=== PATIENT | female | born 1955 | race Caucasian/White ===

== ENCOUNTER 2016-10-21 06:07 | Day surgery (SDC) | payer BC ==
[~2016-10-21] VITALS: Ht 147.3 cm; Wt 59.1 kg
[~2016-10-21 06:07] MED LIST: ASPIRIN325 MG PO; BUSPAR10 MG PO; CARAFATE1 G PO; CRESTOR5 MG PO; CYCLOBENZAPRINE5 MG PO; LEVOTHYROXINE75 MCG PO; LOPRESSOR25 MG PO; NITROQUICK0.4 MG SL; OMEPRAZOLE20 M1 PO; PEPCID AC20 MG PO; ULTRAM50 MG PO; VASOTEC10 MG PO; VISTARIL25 MG PO; WELLBUTRIN SR150 MG PO
[2016-10-21 07:18] LABS: BASOPHILS 0.5 % (0.0-2.0); EOSINOPHILS 3.7 % (0-7); HEMATOCRIT 37.8 % (36.0-48.0); HEMOGLOBIN 11.4 g/dL (12-16); IMMATURE GRANULOCYTES 0.3 % (0-5); LYMPHOCYTES 41.6 % (15-50); MCH 25.2 pg (26.0-34.0); MCHC 30.2 g/dL (31.0-37.0); MCV 83.4 fL (80.0-100.0); MEAN PLATELET VOLUME 9.3 fL (7.4-10.4); MONOCYTES 5.8 % (2-11); NEUTROPHILS 48.1 % (40-80); PLATELET COUNT 327 10x3/uL (130-400); RBC 4.53 10x6/uL (4.00-5.40); RDW 14.8 % (11.5-14.5); WBC 7.6 10x3/uL (4.8-10.8)
[2016-10-21 07:28] LABS: CALCIUM 8.8 mg/dL (8.5-10.1); CARBON DIOXIDE 26.7 mmol/L (21.0-32.0); POTASSIUM - SERUM 4.7 mmol/L (3.5-5.1)
[2016-10-21 08:21] VITALS: BP 140/82; BMI 27.2
--- NOTE | 2016-10-21 11:00 | NUR ---
RECIEVED TO ROOM 2231 VIA BED FROM RECOVERY ROOM S/P LAP OMAR. LAP SITES X 6 NOTED TO ABDOMEN. AWAKE AND ALERT TO VERBAL STIMULI VITAL SIGNS WITH IN NORMAL RANGES. FAMILY AT BEDSIDE. WILL MONITOR,
[2016-10-21 15:44] VITALS: BP 125/81; Ht 147.3 cm; Wt 59.1 kg
--- NOTE | 2016-10-21 16:08 | NUR ---
PT THRESHING OPERATOR SET UP AT THIS TIME FOR PAIN CONTROL.
[2016-10-21 16:23] VITALS: BP 144/64
[2016-10-21 20:00] VITALS: BP 121/76
--- NOTE | 2016-10-21 20:00 | NUR ---
PATIENT IN BED WATCHING TV. HOB 30 DEGREES. AAOX4. RR EVEN AND UNLABORED. 0 S/S OF DISTRESS. PATIENT DENIES PAIN WHEN SHE IS SITTING STILL BUT STATES THAT IT IS AN 8/10 WHEN SHE MOVES. IV TO LEFT FA PATENT WITH NO REDNESS OR SWELLING. BANDAIDS X5 TO ABD. SCD'S ON. AT BEDSIDE. SRX2. BED LOW. CALL LIGHT WITHIN REACH.
--- NOTE | 2016-10-21 23:40 | NUR ---
ASSISTED PATIENT TO BATHROOM AND BACK TO BED. MEDS GIVEN PER ORDER. VASOTEC HELD BECAUSE BP TOO LOW.
[2016-10-22] VITALS: BP 143/77
[2016-10-22 04:00] VITALS: BP 138/75
--- NOTE | 2016-10-22 04:14 | NUR ---
PATIENT SLEEPING WITH NO DISTRESS NOTED. AT BEDSIDE.
[2016-10-22 05:06] LABS: BASOPHILS 0.2 % (0.0-2.0); EOSINOPHILS 0.1 % (0-7); HEMATOCRIT 36.6 % (36.0-48.0); HEMOGLOBIN 11.3 g/dL (12-16); IMMATURE GRANULOCYTES 0.2 % (0-5); LYMPHOCYTES 24.8 % (15-50); MCH 25.4 pg (26.0-34.0); MCHC 30.9 g/dL (31.0-37.0); MCV 82.2 fL (80.0-100.0); MEAN PLATELET VOLUME 9.3 fL (7.4-10.4); MONOCYTES 7.2 % (2-11); NEUTROPHILS 67.5 % (40-80); PLATELET COUNT 345 10x3/uL (130-400); RBC 4.45 10x6/uL (4.00-5.40); RDW 14.6 % (11.5-14.5)
[2016-10-22 05:14] LABS: WBC 16.6 10x3/uL (4.8-10.8)
[2016-10-22 05:33] LABS: ANION GAP 14.8 mmol/L (8-16); CALCIUM 8.9 mg/dL (8.5-10.1); CARBON DIOXIDE 23.2 mmol/L (21.0-32.0); CREATININE - SERUM 0.9 mg/dL (0.6-1.3)
--- NOTE | 2016-10-22 07:45 | NUR ---
UP AND GETTING READY TO BATH, AT BEDSIDE, DENIES NEEDS, CALL LIGHT IN REACH, BED LOWEST POSITION, SIDE RAILS UP X2
--- NOTE | 2016-10-22 07:45 | NUR ---
SITTING IN BED, AT BEDSIDE, DENIES NEEDS, CALL LIGHT IN REACH, BED LOWEST POSITION, SIDE RAILS UP X2
--- NOTE | 2016-10-22 08:00 | NUR ---
PATIENT SITTING UP ON SIDE OF BED WITH NO COMPLAINTS OR SIGNS OF DISTRESS. MUSHROOM GROWTH MEDIA MIXER AT BEDSIDE ASSISTING WITH GROOMING. FAMILY AT BEDSIDE. CALL LIGHT WITHIN REACH.
[2016-10-22 08:44] VITALS: BP 142/73
[2016-10-22] MEDS ORDERED: DILAUDID2 MG PO (10:54)
[2016-10-22] MEDS ORDERED: REGLAN10 MG PO (10:55)
[2016-10-22] MEDS ORDERED: PHENERGAN25 M1 PO (10:57)
[2016-10-22 13:04] VITALS: BP 148/86
--- NOTE | 2016-10-22 17:35 | NUR ---
DISCHARGE PAPER AND INSTRUCTIONS GIVEN PT AND SPOUSE, QUESTIONS ANSWERED, IV REMOVED TIP INTACT, DISCHARGED PER WC WITH BELONGINGS
--- NOTE | 2016-11-12 13:21 | OP ---
PATIENT NAME: MARINA RODRIGUEZ MEDICAL RECORD: [id number] :55 LOCATION:D.[facility] ADMISSION DATE: SURGEON: PLOO SNYDER MD DATE OF OPERATION: 10/21/2016 PREOPERATIVE DIAGNOSES: 1. Gastroesophageal reflux disease. 2. Hiatal hernia. 3. Hypertension. 4. Hypercholesterolemia. POSTOPERATIVE DIAGNOSES: 1. Gastroesophageal reflux disease. 2. Hiatal hernia. 3. Hypertension. 4. Hypercholesterolemia. PROCEDURE: Laparoscopic hiatal hernia repair with Thalia fundoplication. SURGEON: Polo Snyder MD. REPORT OF PROCEDURE: The patient's abdomen was prepped and draped in sterile fashion. A Veress needle was inserted in the left subcostal region and the abdomen was insufflated. An 11-mm Visiport trocar was inserted in the midline just above the umbilicus. I could see the Veress needle and there was no sign of any injury to bowel or surrounding structures. A 12-mm trocar was placed in the left subcostal region. A 5-mm trocar was placed in the epigastrium, a 5-mm trocar was placed in the right lateral subcostal region and a final 5-mm trocar was placed in the left lateral abdomen. The liver retractor was inserted and the left lobe of the liver was elevated. At this point, we could see there was a large hiatal hernia with about a third to a half of the stomach up in the chest. I started my dissection of the lesser omentum using Harmonic scalpel. This was continued up to the right side of the right noah. We dissected into the right side of the right noah and got underneath the hernia sac. This hernia sac was released from its thoracic attachments and at this point, we were able to free up the tissue as far anteriorly and posteriorly as possible. At this point, we went to the greater curvature of the stomach and the superior aspect of the greater curvature of the stomach was inspected. I then took down the short gastric using Harmonic scalpel. We continued this dissection all the way across the superior aspect of the stomach and fundus until we encountered the left side of the right noah. This portion of the noah was dissected free and again, the hernia sac was released. At this point, we had the stomach completely released from the hernia sac and it would rest easily in the abdominal cavity. We had about 2-3 cm of the esophagus and the abdomen, the vagus nerves were identified and maintained the hernia defect was then reapproximated with interrupted 0 Polydek times 4. At this point, we performed our 360-degree fundoplication wrap. The fundus of the stomach was pulled around the distal esophagus. This was sutured into place with 0 Polydek times 3. The top and the bottom suture incorporated a bite of the esophagus. This wrap appeared to lie in good position and did not appear to be too tight. The indwelling OG tube was then removed with ease. We irrigated out the abdomen and saw no sign of any bleeding. The liver retractor was then removed. A Grupo-Elif suture passer device was then used to close the fascia of the 11 and 12 mm trocar sites. At this point, the ports and insufflation were then removed. The subcutaneous tissues were infused with a total of 10 mL of 0.25% OPERATIVE REPORT [id number] MARINA RODRIGUEZ with epinephrine. The skin incisions were then closed with subcutaneous 5-0 Monocryl. COMPLICATIONS: None. CONDITION: Stable. ANESTHESIA: General endotracheal and local. BLOOD LOSS: Minimal. TRANSINT:[id number] Voice Confirmation ID: [id number] DOCUMENT ID: [id number] POLO SNYDER MD at 1321 CC: DEXTER JACKSON MD and YASH ATKINSON MD [id number] DICTATION DATE: 10/21/16 1112 ICT BUSINESS ANALYST: 10/21/16 1407 [facility] 10/22/[id number] [place] [address]
== END 2016-10-22 17:37 | disposition home or self-care (01) ==
LOC: D.OPS 06:07 → D.MS 06:07 → D.PAN 09:00 → D.OPS 09:00 → D.MS 12:19 → D.OPS 10-22 17:37
PROVIDERS: Surgery
DX: K21.9 Gastro-esophageal reflux disease without esophagitis (principal); K44.9 Diaphragmatic hernia without obstruction or gangrene; I10 Essential (primary) hypertension; E78.00 Pure hypercholesterolemia, unspecified

== ENCOUNTER 2017-04-11 08:24 | Day surgery (SDC) | payer BC ==
[~2017-04-11] VITALS: Ht 147.3 cm; Wt 56.7 kg
--- NOTE | ~2017-04-11 | OP ---
PATIENT NAME: MARINA RODRIGUEZ MEDICAL RECORD: [id number] :55 LOCATION:D.[facility] ADMISSION DATE: SURGEON: SIMON BEDOYA MD DATE OF OPERATION: 04/11/2017 PREOPERATIVE DIAGNOSIS: Left thyroid nodule. POSTOPERATIVE DIAGNOSIS: Left thyroid nodule. PROCEDURE: Left thyroid lobectomy. SURGEON: Simon Bedoya MD. ANESTHESIA: General orotracheal. BLOOD LOSS: Less than 20 cc. SPECIMENS: Left thyroid lobe and nodule. FINDINGS: Frozen section diagnosis of a 3-cm left thyroid nodule, benign follicular neoplasm. DRAINS: A single NICK. COMPLICATIONS: None. DISPOSITION: Recovery stable. DESCRIPTION OF PROCEDURE: The patient was brought to the operating room, placed in supine position, sedated and intubated by anesthesia. The eyes were taped. She was positioned, prepped and draped in usual sterile fashion for a thyroid surgery. Her cricoid and sternal notch were palpated. The incision was injected with a total of 1% lidocaine with 1:100,000 epinephrine. A horizontal incision was made between the cricoid and sternal notch. This was taken down through the skin with a 15 blade and then spatula tip cautery and then flaps were elevated superiorly and inferiorly. Four separate 2-0 silk stick ties were used for retraction sutures. The fascia was divided in the midline by layers with tonsil clamp and [place] retractor down to expose the thyroid isthmus. Strap muscles were elevated off the thyroid on the left side, she had a large inferior thyroid nodule. The lateral thyroid vein was taken down. It was quite large, it was ligated with 2-0 silk ties and then the thyroid gland was rotated medially. The large nodule attached inferiorly could be retracted superiorly to expose the recurrent laryngeal nerve, which was followed superiorly. Dissection medial preserved the parathyroid gland, rotated the gland medially up to Han's ligament. Once that was accomplished, then the superior thyroid was taken down and was dissected out. Some veins were tied with 3-0 silk ties. This allowed complete rotation of the thyroid gland medially. The superior parathyroid was preserved and the Han's ligament was taken down avoiding any trauma to the recurrent laryngeal nerve and then the thyroid was divided at the isthmus and tied with a 2-0 silk tie. The isthmus was quite small. Frozen section returned benign follicular neoplasm. The right side of the gland was palpated and really no significant nodule was palpated. No abnormalities were seen. The wound was irrigated completely clean and dry. A 10-Kyrgyz drain was placed through a separate stab incision inferior to the wound. The strap muscles were approximated in the midline with a 4-0 Vicryl. The platysma layer incision was OPERATIVE REPORT [id number] MARINA RODRIGUEZ Monisha closed with interrupted 4-0 Vicryl. The skin was closed with running subcuticular 6-0 Prolene. Steri-Strips and Mastisol were applied. She was awakened, extubated and transported to recovery in good condition. No complications. TRANSINT:[id number] Voice Confirmation ID: [id number] DOCUMENT ID: [id number] SIMON BEDOYA MD CC: [id number] DICTATION DATE: 04/11/171456 COMPUTER SYSTEM SPECIALIST: 04/11/171913 [facility] [address] [id number]
[~2017-04-11 08:24] MED LIST changes: +DILAUDID2 MG PO; +PHENERGAN25 M1 PO; +REGLAN10 MG PO; +REQUIP0.25 MG PO; +ROBAXIN-750750 MG PO
[2017-04-11 09:31] LABS: HEMATOCRIT 41.5 % (36.0-48.0); HEMOGLOBIN 13.2 g/dL (12-16); MCH 28.5 pg (26.0-34.0); MCHC 31.8 g/dL (31.0-37.0); MCV 89.6 fL (80.0-100.0); MEAN PLATELET VOLUME 9.3 fL (7.4-10.4); RBC 4.63 10x6/uL (4.00-5.40); RDW 13.8 % (11.5-14.5); WBC 8.1 10x3/uL (4.8-10.8)
[2017-04-11 10:55] VITALS: BP 138/51; Ht 147.3 cm; Wt 56.7 kg
[2017-04-11 14:48] VITALS: BP 130/71
--- NOTE | 2017-04-11 14:48 | NUR ---
PT ARRIVED FROM RECOVERY VIA BED. ON ROOM AIR. SLIGHTLY DROWSY. REPORTS NO PAIN AT THIS TIME ONLY SORE THROAT. PT HAD L-THYROID LOBECTOMY PARTIAL REMOVAL. HAS NICK DRAIN ON LEFT SIDE OF NECK WITH SANGUINEOUS DRAINAGE WITH NO DRESSING. BED PLACED IN LOW POSITION. CALL LIGHT IN REACH. PT DENIES OTHER NEEDS AT THIS TIME.
--- NOTE | 2017-04-11 15:54 | HP ---
PATIENT: JUS RODRIGUEZ MEDICAL RECORD: [id number] ACCOUNT: [id number] LOCATION:D.[facility] : 55 ADMISSION DATE: 04/11/17 HISTORY AND PHYSICAL EXAMINATION Preoperative History and Physical HISTORY OF PRESENT ILLNESS: Jus is a 61-year-old female with a left thyroid nodule that has been shown to be enlarging. She is being admitted for left thyroid lobectomy, possible total thyroidectomy. PAST MEDICAL HISTORY: Includes hypertension, reflux and CVA. PAST SURGICAL HISTORY: Includes tonsillectomy, hysterectomy, carpal tunnel surgery, bunionectomy, ASD closure in 2013, laminectomy and cholecystectomy. CURRENT MEDICATIONS: Include enalapril, metoprolol, bupropion, omeprazole, aspirin, buspirone, Crestor, Carafate, Pepcid, tramadol and Robaxin. ALLERGIES: CODEINE, BETADINE AND ADHESIVE TAPE. PHYSICAL EXAMINATION: GENERAL: She is a healthy-appearing, developmentally normal. FACE: Normal, symmetric, no lesions. EYES: Sclerae and conjunctivae are normal. EARS: Canals and TMs are normal. NOSE: No masses, polyps, or drainage. ORAL CAVITY AND OROPHARYNX: Normal. NECK: She has a dominant nodule 3 cm in the left lower pole of the thyroid, arises when she swallows. CHEST: Clear. CARDIOVASCULAR: Regular rate and rhythm, no murmur. EXTREMITIES: Normal. IMPRESSION: Left dominant thyroid nodule. PLAN: Left thyroid lobectomy with possible total thyroidectomy. TRANSINT:[id number] Voice Confirmation ID: [id number] DOCUMENT ID: [id number] SIMON BEDOYA MD at 1554 CC: [id number] DICTATION DATE: 04/07/17 1536 MARKETING ADMIN: 04/07/17 1748 [address] [place] [address]
[2017-04-11 16:18] VITALS: BP 115/64
[2017-04-11 17:00] VITALS: BP 143/74
[2017-04-11 18:00] VITALS: BP 133/71
--- NOTE | 2017-04-11 18:15 | NUR ---
PT RESTING QUIETLY. REPORTS PAIN 4/10 BUT DOES NOT WANT ANY PAIN MEDICINE AT THIS TIME. WILL CONTINUE TO MONITOR.
--- NOTE | 2017-04-11 19:42 | NUR ---
ASSISTED PATIENT BACK FROM THE RESTROOM. PATIENT IS STEADY ON HER FEET. PATIENT DENIES OTHER NEEDS AT THIS TIME. BED IN LOWEST POSITION, CALL LIGHT WITHIN REACH, AND GUEST AT BEDSIDE. ENCOURAGED THE PATIENT TO CALL IF SHE HAS FURTHER NEEDS.
[2017-04-11 20:00] VITALS: BP 106/70
[2017-04-12] VITALS: BP 115/62
[2017-04-12 03:59] VITALS: BP 130/78
--- NOTE | 2017-04-12 07:30 | NUR ---
PT UP AD KIRAN JUST GOT OUT OF SHOWER. AT BEDSIDE. BOTH DENY NEEDS OTHER THAN ICE, GIVEN. WILL CONT TO MONITOR
[2017-04-12] MEDS ORDERED: HYDROCODON-ACE1 EAC7 PO (08:55)
[2017-04-12 09:24] VITALS: BP 134/69
--- NOTE | 2017-04-12 09:57 | NUR ---
WENT OVER DC PAPERWORK WITH PT PT VERBALIZES UNDERSTANDING. DC PIV WITH CATH TIP INTACT, PT GOT DRESSED AND WAS WHEELED DOWN BY VOLUNTEER. PT TO BE DRIVEN BY HER
== END 2017-04-12 09:58 | disposition home or self-care (01) ==
LOC: D.OPS 08:24 → D.PAN 10:45 → D.MS 14:51 → D.OPS 04-12 09:58
PROVIDERS: Anesthesiology
DX: E04.1 Nontoxic single thyroid nodule (principal); I10 Essential (primary) hypertension; Z01.812 Encounter for preprocedural laboratory examination

== ENCOUNTER 2019-03-21 05:46 | Day surgery (SDC) | payer MEDICAID ==
[~2019-03-21] VITALS: Ht 147.3 cm; Wt 59.0 kg
--- NOTE | ~2019-03-21 | OP ---
PATIENT NAME: MARINA RODRIGUEZ MEDICAL RECORD: [id number] :55 LOCATION:D.OPS ADMISSION DATE: SURGEON: HARSH CALDERÓN DPM DATE OF OPERATION: 03/21/2019 PREOPERATIVE DIAGNOSES: 1. Hallux abductovalgus, left foot. 2. Instability, left first met cuneiform joint. POSTOPERATIVE DIAGNOSES: 1. Hallux abductovalgus, left foot. 2. Instability, left first met cuneiform joint. PROCEDURES: 1. Caballero bunionectomy, left foot. 2. First met cuneiform joint fusion, left foot. ANESTHESIA: Preoperative popliteal block per the anesthesia department as well as intraoperative general anesthesia. HEMOSTASIS: Left thigh tourniquet at 350 mmHg. PREOPERATIVE DETAILS: The patient was taken to the OR and placed on the operating table in a supine position. This was followed by induction of general anesthesia followed by the left extremity being prepped and draped in usual aseptic technique followed by exsanguination and inflation of tourniquet. PROCEDURE #1: Caballero bunionectomy, left foot: A 15-blade was used to create an incision from the dorsal aspect of the proximal phalanx of the hallux just proximal to the first met cuneiform joint. The incision was deepened down through subcutaneous tissue to the first MPJ where an inverted L capsulotomy was performed. The medial capsular flap was reflected and the head of the first metatarsal was delivered. A sagittal saw was used to resect the medial eminence. Attention was then directed to the first interspace where a lateral release was performed. Good clinical reduction of lateral contracture was verified. The wound was flushed. PROCEDURE #2: First met cuneiform joint fusion, left foot. The incision as described in #1 was carried down to the periosteum and the first met cuneiform joint was delivered. A sagittal saw was used to resect the joint. Temporary fixation was placed. Good alignment was noted. A 5-hole plate with one screw crossing the fusion site was placed with excellent rigid internal fixation as well as alignment of the first ray as verified via the C-arm. The wound was flushed. The first MPJ was repaired with 2-0 Vicryl. The periosteum was repaired with 2-0 Vicryl. The subcutaneous tissue was reapproximated with 4-0 Rapide and the skin was closed with 4-0 Rapide in a subcuticular technique followed by Dermabond. Adaptic, 4 x 4 and Conform were used to dress the wound followed by application of modified Siegel compression dressing. Tourniquet was deflated. POSTOPERATIVE DETAILS: The patient tolerated the procedure well and left the OR with vital signs stable and vascular status at preoperative levels. The patient was transported to recovery per anesthesia in stable condition. TRANSINT:[id number] Voice Confirmation ID: [id number] DOCUMENT ID: [id number] OPERATIVE REPORT [id number] MARINA RODRIGUEZ MCKAY DPM CC: [id number] DICTATION DATE: 03/21/19911 TUB PULLER: 03/21/19925 [facility] [address] [place] [address]
[~2019-03-21 05:46] MED LIST changes: +ACETAMINOPHEN500 M1 PO; +BUPROPION HCL150 M1 PO; +CYMBALTA60 MG PO; +GABAPENTIN100 MG PO; +HYDROCODON-ACE1 EAC7 PO; -ROBAXIN-750750 MG PO; +ROBAXIN500 MG PO; -WELLBUTRIN SR150 MG PO; +ZOCOR10 MG PO
[2019-03-21 06:04] LABS: HEMATOCRIT 38.4 % (36.0-48.0); HEMOGLOBIN 12.5 g/dL (12-16); MCH 28.7 pg (26.0-34.0); MCHC 32.6 g/dL (31.0-37.0); MCV 88.1 fL (80.0-100.0); MEAN PLATELET VOLUME 9.3 fL (7.4-10.4); RBC 4.36 10x6/uL (4.00-5.40); RDW 12.7 % (11.5-14.5); WBC 8.6 10x3/uL (4.8-10.8)
[2019-03-21 06:59] VITALS: BP 160/85; Ht 147.3 cm; Wt 59.0 kg
--- NOTE | 2019-03-21 09:46 | NUR ---
0935-REC'D FROM . VSS. DENIES PAIN.IV PATENT TO RIGHT HAND AT KVO. FULL LIQUID TRAY TO ROOM. AT BEDSIDE. CL IN EASY REACH. DRESSING TO RIGHT FOOT CDI.
--- NOTE | 2019-03-21 10:34 | NUR ---
1035-TOLERATED FULL LIQUID TRAY. ABLE TO TRANSFER INTO W/C AND URINATE IN RESTROOM. DISCONTINUED IV FROM RIGHT HAND WITH CATH INTACT. DISPOSED INTO SHARPS AND COVERED WITH BANDAID. REVIEWED DISCHARGE INSTRUCTIONS WITH PT, VERBALIZED UNDERSTANDING WITHOUT QUESTIONS OR CONCERNS. ESCORTED OUT TO VEHICLE BY VOLUNTEER WITH TO DRIVE HOME,DISCHARGE INSTRUCTIONS IN HAND.
== END 2019-03-21 10:35 | disposition home or self-care (01) ==
LOC: D.OPS 05:46 → D.PAN 10:00 → D.OPS 10:00
PROVIDERS: Anesthesiology; ATTEND Podiatrist
DX: M20.12 Hallux valgus (acquired), left foot (principal); M25.375 Other instability, left foot; Z01.812 Encounter for preprocedural laboratory examination

== ENCOUNTER 2020-03-14 05:19 | Day surgery (SDC) | payer MEDICARE, MEDICAID ==
[~2020-03-14] VITALS: Ht 147.3 cm; Wt 58.2 kg
--- NOTE | ~2020-03-14 | OP ---
PATIENT NAME: MARINA RODRIGUEZ MEDICAL RECORD: [id number] :55 LOCATION:D.OPS ADMISSION DATE: SURGEON: LOLA SNYDER MD DATE OF OPERATION: 03/14/2020 PREOPERATIVE DIAGNOSES: 1. Diarrhea. 2. Diverticulosis. 3. Hypertension. 4. Hypercholesterolemia. POSTOPERATIVE DIAGNOSES: 1. Diarrhea. 2. Diverticulosis. 3. Hypertension. 4. Hypercholesterolemia. PROCEDURE: Flexible sigmoidoscopy with biopsy. SURGEON: Lola Snyder MD REPORT OF PROCEDURE: An Olympus endoscope was advanced through the patient's anus, we were able to traverse through the patient's sigmoid colon up to the splenic flexure. As we began our pullback, we did not see any evidence of any acute inflammatory processes. There were no signs of ulcerations. There was no sign of any masses or lesions. The patient did have some moderate diverticulosis in the sigmoid colon with no evidence of diverticulitis. A random biopsy was taken of the mid portion of the patient's rectum. We did a retroflex view into the anal region and did not see any evidence of any hemorrhoids or fissures. At this point, the insufflation and the scope were removed. COMPLICATIONS: None. CONDITION: Stable. ANESTHESIA: TIVA. BLOOD LOSS: Minimal. TRANSINT:[id number] Voice Confirmation ID: [id number] DOCUMENT ID: [id number] LOLA SNYDER MD CC: [id number] DICTATION DATE: 03/14/20818 WARNING COORDINATION METEOROLOGIST: 03/14/20 0952 [facility] 03/14/20 [id number] [id number]
[2020-03-14 06:24] LABS: BASOPHILS 1.1 % (0-2); EOSINOPHILS 3.9 % (0-7); HEMATOCRIT 41.3 % (36.0-48.0); HEMOGLOBIN 12.9 g/dL (12-16); IMMATURE GRANULOCYTES 0.3 % (0-5); LYMPHOCYTES 43.3 % (15-50); MCH 28.7 pg (26.0-34.0); MCHC 31.2 g/dL (31.0-37.0); MCV 91.8 fL (80.0-100.0); MEAN PLATELET VOLUME 9.2 fL (7.4-10.4); MONOCYTES 7.1 % (2-11); NEUTROPHILS 44.3 % (40-80); PLATELET COUNT 277 10x3/uL (130-400); RDW 13.8 % (11.5-14.5); WBC 7.2 10x3/uL (4.8-10.8)
[2020-03-14] MEDS ORDERED: ARMOUR THYROID30 MG PO (06:26)
[2020-03-14] MEDS ORDERED: OMEPRAZOLE20 M1 PO (06:28)
[2020-03-14] MEDS ORDERED: TRAZODONE HCL150 MG PO (06:29)
[2020-03-14] MEDS ORDERED: MELATONIN 3 MG1 TAB PO (06:30)
[2020-03-14] MEDS ORDERED: PROBIOTIC1 EAC1 PO (06:30)
[2020-03-14] MEDS ORDERED: BENADRYL25 MG PO (06:30)
[2020-03-14 06:31] VITALS: Ht 147.3 cm; Wt 58.2 kg
[2020-03-14 06:42] LABS: ANION GAP 10.9 mmol/L (8-16); CARBON DIOXIDE 28.1 mmol/L (21.0-32.0)
[2020-03-14] MEDS ORDERED: QUESTRAN LIG1 PACKET PO (08:17)
--- NOTE | 2020-03-14 09:31 | NUR ---
IV D/C'D WITH CANNULA INTACT.ISCHARGE INSTRUCTIONS GIVEN. NO C/O
== END 2020-03-14 09:20 | disposition home or self-care (01) ==
LOC: D.OPS 05:19
PROVIDERS: ATTEND Surgery
DX: R19.7 Diarrhea, unspecified (principal); K57.90 Diverticulosis of intestine, part unspecified, without perforation or abscess without bleeding; I10 Essential (primary) hypertension; E78.00 Pure hypercholesterolemia, unspecified

== ENCOUNTER 2020-03-25 18:08 | Inpatient (IN) | payer MEDICARE, MEDICAID ==
[~2020-03-25] VITALS: Ht 147.3 cm; Wt 59.1 kg
--- NOTE | ~2020-03-25 | DS ---
PATIENT:MARINA RODRIGUEZ :55 MEDICAL RECORD: [id number] DISCHARGE SUMMARY ADMISSION DATE: 04/08/20 DISCHARGE DATE: 04/11/20 DATE OF ADMISSION: 04/08/2020 DATE OF DISCHARGE: 04/11/2020 ADMISSION DIAGNOSIS: Rectal prolapse. DISCHARGE DIAGNOSES: 1. Rectal prolapse. 2. Allergic reaction to Dilaudid. PROCEDURE: Hand-assisted laparoscopic sigmoid colectomy with laparoscopic rectopexy on 04/08/2020. CONSULTATIONS: None. REPORT OF HOSPITALIZATION: The patient was admitted to the hospital after a successful hand-assisted laparoscopic sigmoid colectomy with rectopexy for rectal prolapse. The patient did very well postoperatively. Two days after surgery, she had her Jimenez catheter removed and she was started on clear liquid diet. She began having bowel function at that point with just little nausea. By the next day, she was tolerating regular diet, ambulating and having no nausea or upset stomach. She had no problems with fevers or abnormal vitals. Her labs were normal at the time of discharge. She was felt to be stable for discharge home at that point. DISCHARGE INSTRUCTIONS: Return to clinic or call if any questions or concerns, fevers, chills, nausea, vomiting or worsening abdominal pain. ACTIVITIES: No heavy lifting or straining for 6 weeks postoperatively. FOLLOWUP: In clinic with me in 10-14 days. DIET: Regular. DISCHARGE MEDICATIONS: Resume home meds with the inclusion of Demerol. TRANSINT:[id number] Voice Confirmation ID: [id number] DOCUMENT ID: [id number] LOLA SNYDER MD CC: [id number] DICTATION DATE: 04/11/20 1301 HEALTH INFORMATION MANAGERS: 04/12/20 1116 [facility] IN 04/11/20 [facility] [address] [id number]
[~2020-03-25 18:08] MED LIST changes: +ARMOUR THYROID30 MG PO; +BENADRYL25 MG PO; +MELATONIN 3 MG1 TAB PO; +METHOCARBAMOL500 MG; +PROBIOTIC1 EAC1 PO; +QUESTRAN LIG1 PACKET PO; -ROBAXIN500 MG PO; +TRAZODONE HCL150 MG PO
[2020-04-07 08:56] LABS: BASOPHILS 0.5 % (0-2); HEMATOCRIT 39.3 % (36.0-48.0); HEMOGLOBIN 12.1 g/dL (12-16); IMMATURE GRANULOCYTES 0.3 % (0-5); LYMPHOCYTES 38.1 % (15-50); MCH 28.3 pg (26.0-34.0); MCHC 30.8 g/dL (31.0-37.0); MCV 91.8 fL (80.0-100.0); MONOCYTES 5.4 % (2-11); NEUTROPHILS 50.7 % (40-80); PLATELET COUNT 246 10x3/uL (130-400); RBC 4.28 10x6/uL (4.00-5.40); RDW 13.8 % (11.5-14.5); WBC 7.6 10x3/uL (4.8-10.8)
--- NOTE | 2020-04-07 08:58 | NUR ---
GAUTHIER VS 144/58, 98.5, P. 59, SAT 99%
[2020-04-07 09:26] LABS: ANION GAP 6.4 mmol/L (8-16); CALCIUM 8.7 mg/dL (8.5-10.1); CREATININE - SERUM 0.9 mg/dL (0.6-1.3); POTASSIUM - SERUM 4.4 mmol/L (3.5-5.1)
[2020-04-08 06:49] VITALS: BP 128/54; BMI 27.2
[2020-04-08 10:38] VITALS: BP 118/52
[2020-04-08 10:52] VITALS: BP 118/52; Ht 147.3 cm; Wt 59.1 kg
--- NOTE | 2020-04-08 11:07 | NUR ---
PATIENT ARRIVED ON FLOOR VIA BED ACCOMPANIED BY SPOUSE. ASSESSMENT PER FLOWSHEET, REQUESTING PAIN MEDICATION. SCD'S ON, LOWER MIDLINE ABDOMEN DRESSING INTACT, TWO BANDAGES ON RIGHT SIDE ABDOMEN INTACT. GILES IN PLACE AND DRAINGING. BED LOW POSITION, CALL LIGHT IN REACH, FAMILY AT BEDSIDE.
[2020-04-08 13:46] VITALS: BP 91/61
[2020-04-08 20:00] VITALS: BP 95/46
[2020-04-09] VITALS: BP 84/44
[2020-04-09 04:00] VITALS: BP 105/43
[2020-04-09 06:13] LABS: BASOPHILS 0.2 % (0-2); EOSINOPHILS 0.1 % (0-7); HEMATOCRIT 33.6 % (36.0-48.0); HEMOGLOBIN 10.5 g/dL (12-16); IMMATURE GRANULOCYTES 0.2 % (0-5); MCH 28.8 pg (26.0-34.0); MCHC 31.3 g/dL (31.0-37.0); MCV 92.3 fL (80.0-100.0); MEAN PLATELET VOLUME 9.2 fL (7.4-10.4); MONOCYTES 6.6 % (2-11); NEUTROPHILS 75.9 % (40-80); PLATELET COUNT 244 10x3/uL (130-400); RBC 3.64 10x6/uL (4.00-5.40); RDW 14.2 % (11.5-14.5)
[2020-04-09 06:14] LABS: WBC 12.6 10x3/uL (4.8-10.8)
--- NOTE | 2020-04-09 07:18 | NUR ---
PATIENT RESTING IN BED WITH IV PATEN IN LEFT AC. DILIED TRAFFIC II MANAGER CHANGED OUT THIS SHIFT. F/C IN PLACE AND PATEN WITH 400 DARK OUTPUT. SCD'S IN PLACE. FAMILY AT BEDSIDE CALL LIGHT IN REACH.
[2020-04-09 07:22] LABS: CALC OSMOLALITY 274 mosm/kg (275-300); CALCIUM 7.6 mg/dL (8.5-10.1); CARBON DIOXIDE 23.3 mmol/L (21.0-32.0); CHLORIDE - SERUM 107 mmol/L (98-107); CREATININE - SERUM 0.8 mg/dL (0.6-1.3); GLUCOSE 83 mg/dL (74-106); POTASSIUM - SERUM 3.9 mmol/L (3.5-5.1); SODIUM 138 mmol/L (136-145); eGFR NON AFRICAN AMERICAN 76 mL/min (90-120)
[2020-04-09 07:26] LABS: UREA NITROGEN 12 mg/dL (7-18)
--- NOTE | 2020-04-09 07:56 | NUR ---
SHE IS ITCHING, SHE STATES "DILAUDID MAKES ME ITCH". HER IS AT THE BEDSIDE. THE CALL LIGHT IS WITHIN REACH. SHE HAS A DRESSING TO HER ABD WITH SCANT AMOUNT OF DRAINAGE.
[2020-04-09 09:55] VITALS: BP 112/59
[2020-04-09 13:46] VITALS: BP 116/56
--- NOTE | 2020-04-09 17:02 | NUR ---
stat lock changed to the left leg.
[2020-04-09 18:10] VITALS: BP 114/56
[2020-04-09 20:00] VITALS: BP 116/46
[2020-04-10] VITALS: BP 116/62
[2020-04-10 04:00] VITALS: BP 137/78
[2020-04-10 06:48] LABS: BASOPHILS 0.2 % (0-2); EOSINOPHILS 5.8 % (0-7); HEMATOCRIT 34.1 % (36.0-48.0); HEMOGLOBIN 10.5 g/dL (12-16); IMMATURE GRANULOCYTES 0.2 % (0-5); LYMPHOCYTES 20.9 % (15-50); MCH 28.1 pg (26.0-34.0); MCHC 30.8 g/dL (31.0-37.0); MCV 91.2 fL (80.0-100.0); MEAN PLATELET VOLUME 9.4 fL (7.4-10.4); MONOCYTES 5.4 % (2-11); NEUTROPHILS 67.5 % (40-80); PLATELET COUNT 222 10x3/uL (130-400); RBC 3.74 10x6/uL (4.00-5.40); RDW 13.9 % (11.5-14.5); WBC 9.8 10x3/uL (4.8-10.8)
[2020-04-10 07:08] LABS: CALCIUM 7.7 mg/dL (8.5-10.1); CARBON DIOXIDE 21.4 mmol/L (21.0-32.0); CHLORIDE - SERUM 108 mmol/L (98-107); CREATININE - SERUM 0.7 mg/dL (0.6-1.3); SODIUM 141 mmol/L (136-145); UREA NITROGEN 9 mg/dL (7-18); eGFR NON AFRICAN AMERICAN 89 mL/min (90-120)
[2020-04-10 07:10] LABS: CALC OSMOLALITY 277 mosm/kg (275-300); GLUCOSE 67 mg/dL (74-106); POTASSIUM - SERUM 3.3 mmol/L (3.5-5.1)
--- NOTE | 2020-04-10 07:42 | NUR ---
AWAKE AND ALERT. ORIENTED X3. NO C/O AT THIS TIME. LUNGS ARE CLEAR BILATERALLY EXCEPT SOME FAINT CRACKLES IN LEFT LL. ENCOURAGED TO USE IS INSTRUCTED. SKIN IS INTACT WITHOUT REDNESS EXCEPT 2 SMALL INSERTION SITES AND ONE INCISION TO ABDOMEN, ALL OF WHICH HAVE DRY INTACT DRESSINGS IN PLACE. IV TO LEFT AC IS PATENT WITHOUT REDNESS AT INSERTION SITE. GILES PATENT WITH CLEAR YELLOW URINE. AT BEDSIDE.
[2020-04-10 09:12] VITALS: BP 102/90
--- NOTE | 2020-04-10 09:15 | NUR ---
GILES D/C WITH TIP INTACT WITHOUT DIFFICULTY. VIKKI CARE PER STAFF.
--- NOTE | 2020-04-10 10:00 | NUR ---
AMBULATED IN HALLWAY PER SELF WITH RW. WITH PATIENT. NO PAIN AFTER EATING CL BREAKFAST.
[2020-04-10 13:02] VITALS: BP 115/62
--- NOTE | 2020-04-10 13:22 | OP ---
PATIENT NAME: MARINA RODRIGUEZ MEDICAL RECORD: [id number] :55 LOCATION:D.[facility] ADMISSION DATE:04/08/20 SURGEON: POLO SNYDER MD DATE OF OPERATION: 04/08/2020 PREOPERATIVE DIAGNOSES: 1. Rectal prolapse. 2. Hypertension. 3. Hypercholesterolemia. 4. Gastroesophageal reflux disease. POSTOPERATIVE DIAGNOSES: 1. Rectal prolapse. 2. Hypertension. 3. Hypercholesterolemia. 4. Gastroesophageal reflux disease. PROCEDURE: 1. Hand-assisted laparoscopic sigmoid colectomy. 2. Rectopexy. SURGEON: Polo Snyder MD REPORT OF PROCEDURE: The patient's abdomen was prepped and draped in sterile fashion. A skin incision was made in the midline just above the pubic region and electrocautery was used to dissect through the subcutaneous tissues and fascia and I bluntly entered the abdominal cavity. A Gelport was inserted with a 5-mm trocar within it. Under direct visualization, a 5-mm trocar was placed in the right lateral abdomen and a 12-mm trocar was placed just anterior to the right anterior superior iliac crest. We were able to mobilize the patient's rectum. There was a lot of redundancy to the sigmoid colon and rectum. We scored the peritoneum on each side of the rectum. I was able to elevate this off of the posterior aspect of the rectal floor. We were able to come behind the rectum and all of the vasculature and elevate this structure up and pull it tightly into the pelvic inlet. Once we had the rectum freed up, then we sutured the rectum up by doing a rectopexy with 2-0 Prolenes in multiple areas which brought the rectum up and more tightly into the pelvis. We then made a window at the mesorectum at the rectosigmoid junction and transected the rectum with the 4.5 blue load Endo-CHRISTINA stapler. The mesentery was taken down with sequential clamp and tie technique with 3-0 silks. I then resected the sigmoid colon, taking down the mesentery with sequential clamp and tie technique with 3-0 silks and then transecting the proximal sigmoid colon using electrocautery. A 2-0 Prolene was used to make a pursestring around the distal aspect of the colon and a 29 EEA anvil was inserted. We then performed an end-to-end anastomosis with an EEA stapler after extending the anal dilators through the rectum. We had 2 complete rings of tissue in the stapler and we checked the anastomosis under water by instilling air in the rectum and saw no signs of leak. I then oversewed the staple line using multiple Lemberted 3-0 silks. There did not appear to be significant tension on the anastomosis. We then removed all of the ports and insufflation and irrigated out the abdomen with normal saline. The 12-mm trocar site fascia was closed with a single interrupted 0 Vicryl. The midline fascia was closed with running #1 loop PDS times 2. We irrigated out the wound beds and then reapproximated the subcutaneous tissues with interrupted 3-0 Vicryl. The skin incisions were closed with kandi. OPERATIVE REPORT [id number] MARINA RODRIGUEZ COMPLICATIONS: None. CONDITION: Stable. ANESTHESIA: General endotracheal. BLOOD LOSS: Minimal. TRANSINT:[id number] Voice Confirmation ID: [id number] DOCUMENT ID: [id number] POLO SNYDER MD at 1322 CC: [id number] DICTATION DATE: 04/08/20 0954 PROCEDURES NURSE: 04/08/201913 ADM IN [facility] [address] [place] [address]
[2020-04-10 17:22] VITALS: BP 139/81
--- NOTE | 2020-04-10 18:50 | NUR ---
ATE ABOUT HALF OF SUPPER, CLEAR LIQUID. CAUSED ABDOMINAL PAIN AFTER EATING. NO CHANGES NOTED. DENIES NEEDS.
[2020-04-10 20:00] VITALS: BP 113/68
[2020-04-11] VITALS: BP 105/59
--- NOTE | 2020-04-11 02:53 | NUR ---
ASSESSED AT THE BEGINNING OF THE SHIFT.PT IS ALERT AND ORIENTED, ABLE TO VERBALIZE NEEDS. PT HAS BEEN UP TO THE BATHROOM WITH ASSISTING. HER DRESSING REMAINS DRY AND INTACT. EARLY DURING THE SHIFT SHE DID GET NAUSEATED AND WAS GIVEN ZOFRAN ORDERED. AT THIS TIME SHE IS ASLEEP WITH AT THE BEDSIDE.
[2020-04-11 04:00] VITALS: BP 114/66
--- NOTE | 2020-04-11 07:30 | NUR ---
PT SITTIN UP IN BED A&O X4. C/O PAIN 5/10, PROVIDED PAIN MEDS PER ORDER. PIV IN LEFT AC, PATENT, NO REDNESS OR SWELLING. LUNG SOUNDS CLEAR ALL LOBES. BOWEL SOUNDS ACTIVE X4 QUADS. LOWER ABD INCISION, DRSG C/D/I, TWO LAB SITES BANDAGED. PT ABLE TO AMBULATE WITHOUT ASSIST. EDUCATED ON CL AND NEEDS, VERBALIZED UNDERSTANDING, DENIES FURTHER NEEDS. BED LOW, RAILS X2. WILL CONTINUE TO MONITOR.
[2020-04-11 08:57] VITALS: BP 142/69
--- NOTE | 2020-04-11 10:18 | NUR ---
SALINE LOCKED PIV IN LEFT AC. PT AMBULATING AROUND UNIT WITH , TOLERATING WELL.
[2020-04-11 12:17] VITALS: BP 123/57
[2020-04-11] MEDS ORDERED: MEPERIDINE HCL50 MG PO (12:57)
--- NOTE | 2020-04-11 14:16 | MORECARE ---
CASE MANAGEMENT DISCHARGE SUMMARY PATIENT: MARINA RODRIGUEZ UNIT: [id number] ADM DATE: 04/08/20 AGE: 64 : 55 SEX: F ROOM/BED: D.2201 AUTHOR: KAMLA DOWLING PHYSICIAN: REFERRING PHYSICIAN: LOLA SNYDER MD DATE OF SERVICE: 04/11/20 Discharge Plan Patient Name: MARINA RODRIGUEZ Facility: [facility]:[place] : 1955 Planned Disposition: Home or Self Care Anticipated Discharge Date: Discharge Date: Expected LOS: Initial Reviewer: [id number] Initial Review Date: 04/08/2020 Generated: 04/11/20 3:15 pm Comments DCP- Discharge Planning Updated by [email or web address]: Tracey Salas on 04/11/20 1:[address] Patient Name: MARINA RODRIGUEZ Admission Status: Elective Accout number: [id number] Admission Date: 04-08-2020 : 1955 Admission Diagnosis:RECTAL PROLAPSE Attending: LOLA SNYDER Current LOS: 3 Anticipated DC Date: Planned Disposition: Home or Self Care Primary Insurance: [employer] [facility] PFFS Discharge Planning Comments: CM MET WITH PATIENT AND FAMILY TO ASSESS DISCHARGE NEEDS. SHE STATES THAT SHE IS INDEPENDENT AT HOME. HER FAMILY IS AT BEDSIDE TO DRIVE HER HOME. IMM EXPLAINED AND SIGNED. DENIES ANY NEEDS FROM A CM STANDPOINT Press Set Up: Tracey Salas Coverage Notice Reviewer: [id number] - Tracey Salas Notice Issued Date-Time: 04/11/2020 14:14 Notice Type: IM Discharge Notice Notice Delivered To: Patient Relationship to Patient: Railroad Car Loader Name: Delivery Method: HAND - Hand Delivered Paula Days: Prior Verbal Notification: Recipient Understood Notice: Yes Recipient Signature: Yes Med Rec Note Co-signed by Attending: Coverage Notice Comment: Patient Name: MARINA RODRIGUEZ Page [phone] at 1416 All edits/amendments must be made on the electronic document DICTATION DATE: 04/11/20 1415 TOOL GRINDER OPERATOR SURFACE: SCHUYLER 04/11/20 1415 RPT#: [id number] DC DATE: STATUS: ADM IN [facility] [address] [place] [address] END OF REPORT
--- NOTE | 2020-04-11 15:30 | NUR ---
EDUCATED PT ON DISCHARGE INSTRUCTIONS, MEDIATIONS, PT VERBALIZED UNDERSTANDING AND SIGNED PAPERWORK. REMOVED PIV IN LEFT AC, CATHETER INTACT, PT TOLERATED WELL. ESCORTED PT TO FRONT EXIT VIA WHEEELCHAIR.
--- NOTE | 2020-04-14 08:00 | MORECARE ---
CASE MANAGEMENT DISCHARGE SUMMARY PATIENT: MARINA RODRIGUEZ UNIT: [id number] ADM DATE: 04/08/20 AGE: 64 : 55 SEX: F ROOM/BED: D.2201 AUTHOR: KAMLA DOWLING PHYSICIAN: REFERRING PHYSICIAN: LOLA SNYDER MD DATE OF SERVICE: 04/14/20 Discharge Plan Patient Name: MARINA RODRIUGEZ Facility: [facility]:[place] : 1955 Planned Disposition: Home or Self Care Anticipated Discharge Date: Discharge Date: 04/11/2020 Expected LOS: Initial Reviewer: [email or web address] Initial Review Date: 04/08/2020 Generated: 04/14/20 9:00 am Comments DCP- Discharge Planning Updated by [email or web address]: Tracey Salas on 04/11/20 1:[address] Patient Name: MARINA RODRIGUEZ Admission Status: Elective Accout number: [id number] Admission Date: 04-08-2020 : 1955 Admission Diagnosis:RECTAL PROLAPSE Attending: LOLA SNYDER Current LOS: 3 Anticipated DC Date: Planned Disposition: Home or Self Care Primary Insurance: [employer] [facility] PFFS Discharge Planning Comments: CM MET WITH PATIENT AND FAMILY TO ASSESS DISCHARGE NEEDS. SHE STATES THAT SHE IS INDEPENDENT AT HOME. HER FAMILY IS AT BEDSIDE TO DRIVE HER HOME. IMM EXPLAINED AND SIGNED. DENIES ANY NEEDS FROM A CM STANDPOINT Technical Service Rep: Tracey Salas Coverage Notice Reviewer: [id number] - Tracey Salas Notice Issued Date-Time: 04/11/2020 14:14 Notice Type: IM Discharge Notice Notice Delivered To: Patient Relationship to Patient: Rnp Name: Delivery Method: HAND - Hand Delivered Paula Days: Prior Verbal Notification: Recipient Understood Notice: Yes Recipient Signature: Yes Med Rec Note Co-signed by Attending: Coverage Notice Comment: Last DP export: 04/11/20 1:15 p Patient Name: MARINA RODRIGUEZ Page [phone] at 0800 All edits/amendments must be made on the electronic document DICTATION DATE: 04/14/20 0800 PROCESS PLANT OPERATOR: SCHUYLER 04/14/20 0800 RPT#: [id number] DC DATE:04/11/20 STATUS: DIS IN [facility] [address] [place] [address] END OF REPORT
== END 2020-04-11 16:06 | disposition home or self-care (01) | DRG 331 ==
LOC: D.MS 04-08 05:35 → D.SDCHOLD 04-08 05:35 → D.MS 04-08 10:37
PROVIDERS: ADMIT Surgery; ATTEND Surgery
PROC: 0DTN0ZZ Resection of Sigmoid Colon, Open Approach (ICD-10-PCS; principal; 2020-04-08 07:30)
DX: K62.3 Rectal prolapse (principal); T40.2X5A Adverse effect of other opioids, initial encounter; I10 Essential (primary) hypertension; E78.00 Pure hypercholesterolemia, unspecified; K21.9 Gastro-esophageal reflux disease without esophagitis